=== PATIENT | female | born 2000 | race Caucasian/White ===

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

== ENCOUNTER 2022-08-24 19:21 | Emergency (ER) | payer MEDICAID, SELFPAY ==
[2022-08-24 19:35] VITALS: BP 129/100; PULSE 66; RESP 28; TEMP 36.8; O2SAT 100; BMI 20.7
--- NOTE | 2022-08-24 19:52 | MHC.EDTECH ---
t/w attempted to get pt from the waiting room. When she was told that her boyfriend could not stay with her she decided to leave. hospitalist physician Jennifer made aware.
== END 2022-08-24 20:17 | disposition left against medical advice (07) ==
LOC: HO.ED 20:15
PROVIDERS: Emergency Provider Emergency Medicine
DX: Z73.3 Stress, not elsewhere classified (principal); Z63.0 Problems in relationship with spouse or partner
CPT/HCPCS: 99283